=== PATIENT | male | born 1990 | race Caucasian/White ===

== ENCOUNTER 2017-11-30 10:59 | Emergency (ER) | payer BC ==
[2017-11-30 11:29] VITALS: BP 134/77
[2017-11-30] MEDS ORDERED: Ketorolac INJ* 30 MG/ML 1 ML VIAL IM ONE (11:43)
--- NOTE | 2017-11-30 11:49 | UC ---
Neck Pain HPI - HPI Summary HPI Summary: Patient states that he roused this morning with discomfort in his right shoulder blade area he notes that he gets the discomfort primarily when he moves his right arm and when he turns his head to the right he gets pain in the muscle along the right side of his neck. He denies any numbness tingling or weakness to his arms he denies any pain in his cervical spine or back. He denies any abdominal pain he denies any fever or chills and offers no other complaints. He did take some Motrin earlier this morning without significant relief. He had to leave work due to his discomfort. There is no associated history of injury. He also has no associated cough short of breath or chest pain. - History of Current Complaint Chief Complaint: UCUpperExtremity Stated Complaint: RT SHOULDER COMP Time Seen by Provider: 11/30/17 11:33 Hx Obtained From: Patient Timing: Constant Pain Intensity: 4 Aggravating Factors: Movement Associated Signs & Symptoms: Negative: Nuchal Rigity, Weakness, Headache, Paresthesia - Allergies/Home Medications Allergies/Adverse Reactions: Allergies Allergy/AdvReac Type Severity Reaction Status Date / Time amoxicillin Allergy Rash And Verified 11/30/17 11:23 Itching Home Medications: Home Medications Naproxen Sodium [Aleve] 440 mg PO ONCE PRN 11/30/17 [History Confirmed 11/30/17] PMH/Surg Hx/FS Hx/Imm Hx Previously Healthy: Yes - Surgical History Surgical History: Yes Surgery Procedure, Year, and Place: right inguinal hernia 08/2013 - Family History Known Family History: Positive: None - Social History Occupation: Employed Full-time Alcohol Use: Occasionally Substance Use Type: None Smoking Status (MU): Smoker, Current Status Unknown Type: Smokeless Tobacco Amount Used/How Often: 1 can every 2 days Have You Smoked in the Last Year: Yes When Did the Patient Quit Smoking/Using Tobacco: states quit last week - Immunization History Vaccination Up to Date: Yes Review Of Systems Constitutional: Positive: Negative Skin: Positive: Negative Eyes: Positive: Negative ENT: Positive: Negative Respiratory: Positive: Negative Cardiovascular: Positive: Negative Gastrointestinal: Positive: Negative Musculoskeletal: Positive: Other: - Pain right sided neck Neurological: Positive: Negative Psychological: Positive: Negative All Other Systems Reviewed And Are Negative: Yes Physical Exam Triage Information Reviewed: Yes Appearance: Well-Appearing Vital Signs: Initial Vital Signs Temp 99.3 F 11/30/17 11:24 Pulse 88 11/30/17 11:24 Resp 16 11/30/17 11:24 BP 134/77 11/30/17 11:24 Pulse Ox 100 11/30/17 11:24 Vital Signs Reviewed: Yes Eyes: Positive: Conjunctiva Clear ENT: Positive: Normal ENT inspection Neck: Positive: Supple, No Lymphadenopathy, Other: - Bare from waist up for exam : Slight flattening to the right lateral trapezius muscle. Palpation of the trapezius muscle on the right side reproduces and exacerbates patient's discomfort.. Negative: Nuchal Rigidity Respiratory: Positive: Chest non-tender, Lungs clear, Normal breath sounds Cardiovascular: Positive: RRR, No Murmur, Pulses Normal Abdomen Description: Positive: Nontender, No Organomegaly, Soft. Negative: Guarding Bowel Sounds: Positive: Present Musculoskeletal: Positive: Other: - Cervical, thoracic, lumbar spine are without deformity or tenderness and range of motion is intact. Patient is 5 out of 5 strength and 2+ reflexes 4. Right shoulder girdle is nontender and the shoulder has full range of motion that is painless. Neurological: Positive: Alert Psychological: Positive: Age Appropriate Behavior Skin Exam: Normal Neck Pain Course/Dx - Course Course Of Treatment: Exam is consistent with trapezius muscle strain and spasm. We'll treat with anti-inflammatory and muscle relaxer along with limited duty at work and close follow-up for recheck with primary care. Patient advised that he is not take his next dose of anti-inflammatory specifically naproxen until bedtime tonight. He was advised he may start the muscle relaxer immediately. - Differential Dx/Diagnosis Provider Diagnoses: R Trapezius muscle spasm Discharge - Sign-Out/Discharge Documenting (check all that apply): Discharge/Admit/Transfer - Discharge Plan Condition: Stable Disposition: HOME Prescriptions: Cyclobenzaprine TAB* [Flexeril 10 MG TAB*] 10 mg PO TID #10 tab Naproxen [Naprosyn 500 mg tab] 500 mg PO BID #14 tablet Patient Education Materials: Muscle Strain (DC) Forms: *Work Release Referrals: Chau Browne DO [Primary Care Provider] - 3 Days - Billing Disposition and Condition Condition: STABLE Disposition: Home
== END 2017-11-30 12:23 | disposition home or self-care (01) ==
LOC: UCCORT 10:59
DX: M62.838 Other muscle spasm (principal); Z88.0 Allergy status to penicillin; Z87.891 Personal history of nicotine dependence; M54.2 Cervicalgia
CPT/HCPCS: 99202; G0463; J1885

== ENCOUNTER 2019-08-10 11:11 | Emergency (ER) | payer BC ==
--- NOTE | 2019-08-10 12:44 | UC ---
Throat Pain/Nasal Yassine HPI - HPI Summary HPI Summary: Pt presents with c/o ST X 3 weeks, has nasal congestion, and occasional cough . - History of Current Complaint Chief Complaint: UCRespiratory Stated Complaint: COUGH/CHEST CONGESTION/ST Time Seen by Provider: 08/10/19 12:19 Hx Obtained From: Patient Onset/Duration: Sudden Onset, Lasting Days - 3 Severity: Mild Pain Intensity: 3 Associated Signs & Symptoms: Positive: Dysphagia, Nasal Discharge - Epiglottits Risk Factors Epiglottis Risk Factors: Negative - Allergies/Home Medications Allergies/Adverse Reactions: Allergies Allergy/AdvReac Type Severity Reaction Status Date / Time amoxicillin Allergy Rash And Verified 08/10/19 12:24 Itching Home Medications: Home Medications Fexofenadine/Pseudoephedrine [Sandra-D 24 Hour Tablet] 1 each PO DAILY #10 tab.er.24h 08/10/19 [Rx] predniSONE 10 mg TAB [Deltasone 10 MG TAB*] 30 mg PO DAILY #12 tab 08/10/19 [Rx] PMH/Surg Hx/FS Hx/Imm Hx Previously Healthy: Yes - Surgical History Surgical History: Yes Surgery Procedure, Year, and Place: right inguinal hernia 08/2013 - Family History Known Family History: Positive: Cardiac Disease - Social History Occupation: Employed Full-time Lives: With Family Alcohol Use: Occasionally Substance Use Type: None Smoking Status (MU): Never Smoked Tobacco Type: Smokeless Tobacco Amount Used/How Often: 2 cans per week Have You Smoked in the Last Year: Yes - uses smokeless tobacco When Did the Patient Quit Smoking/Using Tobacco: states quit last week - Immunization History Vaccination Up to Date: Yes Review of Systems All Other Systems Reviewed And Are Negative: Yes Constitutional: Positive: Negative Skin: Positive: Negative Eyes: Positive: Negative ENT: Positive: Sore Throat Respiratory: Positive: Cough Cardiovascular: Positive: Negative Gastrointestinal: Positive: Negative Genitourinary: Positive: Negative Motor: Positive: Negative Neurovascular: Positive: Negative Musculoskeletal: Positive: Negative Neurological/Mental Status: Positive: Negative Psychological: Positive: Negative Is Patient Immunocompromised?: No Physical Exam Triage Information Reviewed: Yes Appearance: Well-Appearing Vital Signs Reviewed: Yes Eye Exam: Normal ENT: Positive: Nasal congestion Dental Exam: Normal Neck exam: Normal Respiratory: Positive: No respiratory distress Musculoskeletal Exam: Normal Neurological Exam: Normal Psychological Exam: Normal Skin Exam: Normal Throat Pain/Nasal Course/Dx - Differential Dx/Diagnosis Differential Diagnosis/HQI/PQRI: Pharyngitis, Tonsillitis, URI Provider Diagnosis: Viral syndrome, Sore throat (viral) Discharge ED - Sign-Out/Discharge Documenting (check all that apply): Patient Departure All imaging exams completed and their final reports reviewed: No Studies - Discharge Plan Condition: Stable Disposition: HOME Prescriptions: Fexofenadine/Pseudoephedrine [Sandra-D 24 Hour Tablet] 1 each PO DAILY #10 tab.er.24h predniSONE 10 mg TAB [Deltasone 10 MG TAB*] 30 mg PO DAILY #12 tab Patient Education Materials: Acute Cough (ED) Referrals: Chau Browne DO [Primary Care Provider] - If Needed - Billing Disposition and Condition Condition: STABLE Disposition: Home
[2019-08-10 12:45] VITALS: BP 124/92
== END 2019-08-10 13:11 | disposition home or self-care (01) ==
LOC: UCCORT 11:11
DX: B34.9 Viral infection, unspecified (principal); J02.9 Acute pharyngitis, unspecified; R09.81 Nasal congestion; R05 Cough; Z88.0 Allergy status to penicillin
CPT/HCPCS: 87651; 99212; G0463